=== PATIENT | female | born 1980 | race African-American/Black ===

== ENCOUNTER 2016-09-05 14:24 | Emergency (ER) | payer MEDICAID, OTHER ==
[~2016-09-05] VITALS: Ht 172.7 cm; Wt 74.8 kg
[2016-09-05 15:57] LABS: Hematocrit 33.7 % (36.0-46.0); Hemoglobin 11.1 g/dL (12.2-16.2); Mean Corpuscular Volume 93.9 fL (80.0-100.0); Platelet Count (auto) 329 10^3/uL (140-450); Red Cell Distribution Width 15.5 % (11.6-16.0); White Blood Cell 3.7 10^3/uL (4.4-10.8)
[2016-09-05 16:01] LABS: Metamyelocytes % 0; Myelocytes % 0; Promyelocytes % 0; Reactive Lymphocytes 0
[2016-09-05 16:25] LABS: Albumin 3.8 g/dL (3.4-5.0); BUN/Creatinine Ratio 10.2; Bilirubin, Total 0.1 mg/dL (0.2-1.0); Calcium 8.5 mg/dL (8.5-10.1); Potassium 4.2 mmol/L (3.5-5.1); Total Protein 7.6 g/dL (6.4-8.2)
[2016-09-05 16:27] LABS: Platelet Estimate Adequate
[2016-09-05 16:28] LABS: Burr Cells FEW
[2016-09-05 16:29] VITALS: BP 118/72
== END 2016-09-05 17:02 | disposition home or self-care (01) ==
LOC: ER 14:24
DX: F10.10 Alcohol abuse, uncomplicated (principal); F17.210 Nicotine dependence, cigarettes, uncomplicated; Z98.84 Bariatric surgery status
CPT/HCPCS: 36415; 80053; 80320; 85007; 85027; 99284; G0434